=== PATIENT | male | born 1980 | race Caucasian/White ===

== ENCOUNTER 2017-03-19 09:58 | Emergency (ER) | payer MEDICARE, MEDICAID ==
--- NOTE | 2017-03-19 10:06 | UC ---
General HPI - HPI Summary HPI Summary: here with aide from [facility] had 2 biopsies removed 03/07 and stitches removed from 03/14 areas around the mole removal sites have turned red and are not painful took keflex without effect denies fever and chills - History of Current Complaint Stated Complaint: SKIN COMPLAINT Time Seen by Provider: 03/19/17 10:05 Hx Obtained From: Patient - Allergy/Home Medications Allergies/Adverse Reactions: Allergies Allergy/AdvReac Type Severity Reaction Status Date / Time Diazepam [From Valium] Allergy Unknown Verified 03/19/17 10:06 Reaction Details Sulfa Antibiotics Allergy Unknown Verified 03/19/17 10:06 Reaction Details Home Medications: Home Medications Fluticasone NASAL SPRAY 50MCG* [Flonase NASAL SPRAY 50MCG*] 2 spray BOTH NARES DAILY 03/19/17 [History Confirmed 03/19/17] LevoCETirizine TAB (NF) [Xyzal TAB (NF)] 5 mg PO BEDTIME 03/19/17 [History Confirmed 03/19/17] PMH/Surg Hx/FS Hx/Imm Hx Previously Healthy: Yes - mental retardation, seasonal allergies - Family History Known Family History: Positive: Unknown, Renal Disease - unknown by patient - Social History Occupation: Disabled Lives: [employer] Review of Systems Constitutional: Negative Skin: Rash Eyes: Negative ENT: Negative Respiratory: Negative Cardiovascular: Negative Gastrointestinal: Negative Genitourinary: Negative Motor: Negative Neurovascular: Negative Musculoskeletal: Negative Neurological: Negative Psychological: Negative All Other Systems Reviewed And Are Negative: Yes Physical Exam Triage Information Reviewed: Yes Completion Of Physical Exam Limited Due To: Altered Mental Status Appearance: No Pain Distress, Well-Nourished Vital Signs Reviewed: Yes Eyes: Positive: Conjunctiva Clear ENT: Positive: Pharynx normal, TMs normal Neck: Positive: No Lymphadenopathy Respiratory: Positive: Lungs clear, Normal breath sounds, No respiratory distress, No accessory muscle use Cardiovascular: Positive: RRR, No Murmur, Pulses Normal Abdomen Description: Positive: Nontender, Soft Bowel Sounds: Positive: Present Musculoskeletal: Positive: No Edema Neurological: Positive: Alert Psychological: Positive: Decreased Age Appropriate Behavior Skin: Positive: Other - LLE area of erythema warm to touch 11x9cm medical side of knee erythema warm to touch-left upper thigh 10x9 Course/Dx - Course Course Of Treatment: exam completed. will start doxycycline as keflex not effcetive and pt allergic to bactrim - Differential Dx - Multi-Symptom Provider Diagnoses: celllulitis left leg Discharge - Discharge Plan Condition: Stable Disposition: HOME Prescriptions: Doxycycline Hyclate [Doxycycline Hyclate Dr] 100 mg PO BID #20 tab Patient Education Materials: Cellulitis (ED) Referrals: Jame rCaig MD [Primary Care Provider] - Additional Instructions: Please start antibiotic as directed If area of redness increase or patient gets a fever he needs to be seen by medical provider Increase fluids and rest Take acetaminophen or ibuprofen for fever or pain Please review your discharge instructions. If your symptoms do not improve please call your primary care provider or return to urgent care.
[2017-03-19 10:13] VITALS: BP 112/75
== END 2017-03-19 10:45 | disposition home or self-care (01) ==
LOC: UCCORT 09:58
DX: L03.116 Cellulitis of left lower limb (principal); F79 Unspecified intellectual disabilities; J30.9 Allergic rhinitis, unspecified; Z88.3 Allergy status to other anti-infective agents
CPT/HCPCS: 99212; G0463